=== PATIENT | male | born 1965 | race Asian ===

== ENCOUNTER 2020-11-25 07:38 | Outpatient (CLI) | payer OTHER, SELFPAY ==
[2020-11-25 08:46] LABS: Alanine Aminotransferase 25 U/L (4-50); Albumin Level 4.3 g/dL (3.5-5.1); Alkaline Phosphatase 80 U/L (38-126); Anion Gap 5 mmol/L (8-16); Aspartate Amino Transferase 24 U/L (17-59); Bilirubin,Total 0.8 mg/dL (0.2-1.3); Blood Urea Nitrogen 10 mg/dL (9-20); Calcium 9.3 mg/dL (8.4-10.2); Carbon Dioxide 34 mmol/L (22-30); Chloride 95 mmol/L (98-107); Cholesterol 154 mg/dL (0-200); Estimated Glomerular Filt Rate > 60; Glucose 226 mg/dL (65-110); HDL Direct 39 mg/dL; Potassium 3.5 mmol/L (3.4-5.0); Sodium 134 mmol/L (137-145); Triglycerides 253 mg/dL (<150)
[2020-11-25 08:57] LABS: LDL Cholesterol Direct 55 mg/dL
[2020-11-25 11:09] LABS: Hemoglobin A1C 9.9 % (<5.7)
== END 2020-11-25 07:39 | disposition home or self-care (01) ==
LOC: ANHLAB 07:53
PROVIDERS: PCP Internal Medicine
DX: R06.00 Dyspnea, unspecified (principal); E78.5 Hyperlipidemia, unspecified
CPT/HCPCS: 36415; 80053; 80061; 83036; 84443

== ENCOUNTER 2021-04-28 06:59 | Outpatient (CLI) | payer OTHER, SELFPAY ==
[2021-04-28 07:40] LABS: Alanine Aminotransferase 25 U/L (4-50); Albumin Level 4.1 g/dL (3.5-5.1); Alkaline Phosphatase 66 U/L (38-126); Anion Gap 6 mmol/L (8-16); Aspartate Amino Transferase 26 U/L (17-59); Bilirubin,Total 0.8 mg/dL (0.2-1.3); Blood Urea Nitrogen 15 mg/dL (9-20); Calcium 8.8 mg/dL (8.4-10.2); Carbon Dioxide 34 mmol/L (22-30); Chloride 98 mmol/L (98-107); Cholesterol 131 mg/dL (0-200); Estimated Glomerular Filt Rate > 60; Glucose 117 mg/dL (65-110); HDL Direct 36 mg/dL; Sodium 138 mmol/L (137-145); Triglycerides 151 mg/dL (<150)
[2021-04-28 07:43] LABS: Hemoglobin A1C 8.3 % (<5.7)
[2021-04-28 07:51] LABS: LDL Cholesterol Direct 59 mg/dL
[2021-04-28 08:10] LABS: Prostate Specific Antigen 2.2 ng/mL (< OR = 4.0)
== END 2021-04-28 07:00 | disposition home or self-care (01) ==
LOC: ANHLAB 07:01
PROVIDERS: PCP Internal Medicine; Visit Provider Family Medicine Adolescent Medicine
DX: E11.65 Type 2 diabetes mellitus with hyperglycemia (principal); E78.00 Pure hypercholesterolemia, unspecified; I10 Essential (primary) hypertension
CPT/HCPCS: 36415; 80053; 80061; 83036; 84153; G0103

== ENCOUNTER 2021-05-11 15:27 | Outpatient (RCR) | payer OTHER, SELFPAY ==
[2021-05-11 15:35] VITALS: BMI 30.7
[2021-05-11 15:39] VITALS: BMI 30.7
== END 2021-07-30 11:14 | disposition home or self-care (01) ==
LOC: ANHDMC 15:27
PROVIDERS: PCP Internal Medicine; Visit Provider Family Medicine Adolescent Medicine
DX: E11.65 Type 2 diabetes mellitus with hyperglycemia (principal); Z71.3 Dietary counseling and surveillance
CPT/HCPCS: 97802

== ENCOUNTER 2021-10-09 15:27 | Outpatient (RCR) | payer OTHER, SELFPAY ==
[2021-10-10 14:35] VITALS: BMI 29.8
== END 2021-12-24 09:11 | disposition home or self-care (01) ==
LOC: ANHDMC 15:27
PROVIDERS: PCP Family Medicine Adolescent Medicine; Referring Provider Family Medicine Adolescent Medicine; Visit Provider Family Medicine Adolescent Medicine
DX: E11.65 Type 2 diabetes mellitus with hyperglycemia (principal); Z71.3 Dietary counseling and surveillance
CPT/HCPCS: 97803

== ENCOUNTER 2022-04-25 15:30 | Outpatient (RCR) | payer OTHER, SELFPAY ==
--- NOTE | 2022-03-27 10:09 | PTOPEVAL1 ---
Assessment and note entered by Mayra Vizcaino, PT Evaluation Information Assessment Status Evaluation Diagnosis low back pain Onset 3-4 months ago Subjective Information gradual increase in pain in back; has had PT in the past and it helped--few years ago; usually back gets a little worse in winter when not as active; does not do any exercises for his back; no recent testing, about 3 yr ago had some done; also reports R achilles tendon pain; Reported Pain Level Pain Score Self Report Additional Pain Score Comments pain range in past week of 5-6/10; achey, sore, hurts; radicular into R LE to posterior thigh to knee; increase pain with activity, walk too far; decrease with walking/change position,muscle cream is not taking any meds at this time, not had any over the counter meds in 4 weeks; sometimes awaken from sleep due to back pain, not as much any more; reported walking/standing 30 min Back has improved some in the past 4 weeks; have not used heat/ice--educated PRN use; Assessment PT Clinical Summary Izzy has the diagnosis of low back pain, with radicular pain into R posterior thigh to knee intermittent. His job is sitting and computer work. He reports a history of back pain, without any recent injury or trauma to back. He has had PT in the past and it eased his pain and currently does not do any back exercises. Oswestry self assessment functional score of 52% limitation in activity level-- decreased walking, sitting and activity tolerances. With the evaluation: he has poor standing posture /position and sits with rounded trunk, often crossed his legs; tightness of R and L quads/ant hip & piriformis R, with decreased ROM of hip extension and hamstrings B; weakness of trunk extension and hip extension muscle groups; Skilled PT services are indicated for modalities to decrease pain and spasms, therapeutic exercises to stretch and strengthen trunk and hips, with education to improve posture and body mechanics, and home exercises. Plan of Care Interventions Electrical Stimulation,Hot Pack/Cold Pack,Manual Therapy,Mechanical Traction,Patient/Caregiver Education,Therapeutic Activities,Therapeutic Exercise,Ultrasound,Other
--- NOTE | 2022-04-22 16:25 | PCPTNOTE ---
Patient called & cancelled scheduled appointment this date due to work.
--- NOTE | 2022-04-25 16:10 | PTOPPROG ---
Assessment and note entered by Mayra Vizcaino, PT Evaluation Information Assessment Status Progress Diagnosis low back pain Onset 3-4 months ago Subjective Information back is better, but have overall pain-- all joints hurting; no sure why, want to see dr about it; nothing has changed with meds or anything else; want to see dr and decide if need anymore therapy or what is going on with the pain; pain range of back in the past week:4-6/10, dull pain in back; and when move hip, sometimes R anterior hip; standing/walking tolerance about 60 min then have to sit down; decrease pain with sitting, resting; heat; is not taking any pain meds; have more overall pain in all joints-- cannot do anything at the end of the day, no walking, no lifting; sleeping disrupted due to shoulder pain, arms numb hips sore; Assessment PT Clinical Summary Izzy has received 9 PT sessions for low back pain. Compared to the initial evaluation: pain rating at the low rating is better, from 5 to 4/10 and worst rating same at 6/10; no longer has radicular pain into R leg, but has anterior hip pain at times with stretching; Self assessment Oswestry improved from 52% to 42% limitation in activity; reported standing/walking tolerance increased from 30 to 60 minutes; increased flexibility with standing trunk flexion and supine R hip ER no longer painful, increase L hamstring and B anterior hip/quad flexibility; increase trunk and hip strength; Education has been provided for body mechanics and posture, and HEP. He reports in the past week more overall body and joint pain, want to have the dr check it. HOLD PT until he follows up with the dr. After dr appointment, if agreed, plan to continue PT 2x/wk for continued increase trunk and hip strength and flexibility, with progression of HEP. Plan of Care Interventions Electrical Stimulation,Hot Pack/Cold Pack,Manual Therapy,Mechanical Traction,Neuro Re-education, Patient/Caregiver Education,Therapeutic Activities, Therapeutic Exercise,Ultrasoun
--- NOTE | 2022-06-19 14:14 | PCPTNOTE ---
PHYSICAL THERAPY DISCHARGE 06-19-22 Attending Provider: James Jaimes MD Patient:Izzy Marcum Date of :1965 Mr. Marcum has not returned for any further treatments since the reevaluation on 04/25/2022, therefore he will be discharged at this time. Thank you for referring this patient to [facility].
== END 2022-06-19 14:23 | disposition home or self-care (01) ==
LOC: ANHPT 15:30
PROVIDERS: PCP Family Medicine Adolescent Medicine; Visit Provider Family Medicine Adolescent Medicine
DX: M54.50 Low back pain, unspecified (principal)
CPT/HCPCS: 97014; 97110; 97140; 97161; 97530; G0283

== ENCOUNTER 2022-05-17 07:06 | Outpatient (CLI) | payer OTHER, SELFPAY ==
[2022-05-17 07:28] LABS: Basophils Percent Auto 0.4 % (0.2-1.2); Eosinophils Absolute Auto 0.2 K/mm3 (0-0.3); Eosinophils Percent Auto 2.1 % (0-4.4); Hematocrit 46.4 % (42.0-52.0); Hemoglobin 15.7 g/dL (14.0-18.0); Immature Granulocyte Absolute 0.02 K/mm3 (0.00-0.031); Immature Granulocyte Percent A 0.3 % (0-0.5); Lymphocytes Absolute Auto 1.68 K/mm3 (0.9-3.2); Lymphocytes Percent Auto 23.2 % (18.3-44.2); Mean Corpuscular HGB Conc 33.8 g/dl (32-36); Mean Corpuscular Hemoglobin 26.8 pg (26-34); Mean Corpuscular Volume 79.3 fl (80-100); Mean Platelet Volume 11.6 fl (7.4-10.4); Monocytes Absolute Auto 0.6 K/mm3 (0.1-0.6); Neutrophils Absolute Auto 4.8 K/mm3 (1.3-6.7); Platelet Count Result 205 k/mm3 (150-375); Red Blood Count 5.85 M/mm3 (4.6-6.20); Red Cell Distribution Width 12.1 % (11.5-14.5); White Blood Count 7.2 K/mm3 (4.5-10.0)
[2022-05-17 07:38] LABS: Rheumatoid Factor < 8.6 IU/ML (<12)
[2022-05-17 07:57] LABS: Alanine Aminotransferase 26 U/L (6-50); Albumin Level 4.2 g/dL (3.5-5.1); Alkaline Phosphatase 67 U/L (38-126); Anion Gap 5 mmol/L (8-16); Aspartate Amino Transferase 24 U/L (17-59); Bilirubin,Total 0.8 mg/dL (0.2-1.3); Blood Urea Nitrogen 19 mg/dL (9-20); CRP 0.6 mg/dL (<1.0); Calcium 8.7 mg/dL (8.4-10.2); Carbon Dioxide 34 mmol/L (22-30); Chloride 96 mmol/L (98-107); Cholesterol 128 mg/dL (0-200); Estimated Glomerular Filt Rate > 60; Glucose 155 mg/dL (65-110); HDL Direct 35 mg/dL; Potassium 3.4 mmol/L (3.4-5.0); Sodium 135 mmol/L (137-145); Triglycerides 186 mg/dL (<150)
[2022-05-17 07:59] LABS: Erythrocyte Sedimentation Rate 1 mm/hr (0-20)
[2022-05-17 08:06] LABS: LDL Cholesterol Direct 61 mg/dL
[2022-05-17 08:14] LABS: MALB Creatinine Ratio 8.4 mg/g (0-30); Microalbumin Urine Random 7.7 mg/L (0-16.7)
[2022-05-17 08:23] LABS: Prostate Specific Antigen 2.8 ng/mL (< OR = 4.0)
[2022-05-21 15:48] LABS: C-Peptide 0.59 ng/mL (0.80-3.85)
== END 2022-05-17 07:07 | disposition home or self-care (01) ==
LOC: ANHLAB 07:07
PROVIDERS: Internal Medicine Endocrinology, Diabetes & Metabolism; PCP Family Medicine Adolescent Medicine; Visit Provider Family Medicine Adolescent Medicine
DX: M25.50 Pain in unspecified joint (principal); I10 Essential (primary) hypertension; E11.65 Type 2 diabetes mellitus with hyperglycemia; E78.00 Pure hypercholesterolemia, unspecified; Z71.3 Dietary counseling and surveillance
CPT/HCPCS: 36415; 80053; 80061; 82043; 84153; 84443; 84681; 85025; 85652; 86140; 86430; G0103

== ENCOUNTER 2022-08-26 11:48 | Outpatient (CLI) | payer OTHER, SELFPAY ==
--- NOTE | ~2022-08-26 | XR_ITS ---
XR lumbar spine 2-3V DATE: 08/26/2022 12:12 INDICATION: Recurrent low back pain, radiating upward TECHNIQUE: AP, lateral, coned lateral lumbosacral views COMPARISON: None FINDINGS: Mild lumbar dextroscoliosis. No fracture or bone destruction. The lumbar pedicles are intact. Moderately severe degenerative disc disease at L1-2. The remaining lumbar and lumbosacral interspaces appear well preserved. The sacral iliac joints are intact. IMPRESSION: Mild dextroscoliosis Moderately severe degenerative disc disease at L1-2 Reviewed, dictated and finalized at location [facility].
== END 2022-08-26 11:49 | disposition home or self-care (01) ==
PROVIDERS: PCP Family Medicine Adolescent Medicine; Visit Provider Family Medicine Adolescent Medicine
DX: M54.50 Low back pain, unspecified (principal); M41.9 Scoliosis, unspecified; M51.36 Other intervertebral disc degeneration, lumbar region
CPT/HCPCS: 72100

== ENCOUNTER 2022-09-02 08:23 | Outpatient (CLI) | payer OTHER, SELFPAY ==
--- NOTE | ~2022-09-02 | US_ITS ---
US abdomen complete DATE: 09/02/2022 09:00 INDICATION: Recurrent right upper quadrant abdominal pain TECHNIQUE: Real-time imaging and Doppler analysis of the abdomen COMPARISON: None FINDINGS: The pancreas is largely obscured by bowel gas. No hepatic space-occupying mass lesion is ev ident. Normal hepatopedal portal venous flow direction. No gallstones or gallbladder wall thickening or pericholecystic fluid collection. The common bile barbi t measures approximately 2.8 mm. No renal mass lesion or hydronephrosis of the exception of an approximately 4 cm cyst at the upper po le of the left kidney. Splenic size is within normal limits. Normal caliber of the abdominal aorta. The inferior vena cava appears unremarkable. IMPRESSION: Approximately 4 cm left renal superior pole cyst The pancreas is obscured Reviewed, dictated and finalized at [facility]. Reviewed, dictated and finalized at location B.
== END 2022-09-02 08:24 | disposition home or self-care (01) ==
PROVIDERS: PCP Family Medicine Adolescent Medicine; Visit Provider Family Medicine Adolescent Medicine
DX: R10.11 Right upper quadrant pain (principal); N28.1 Cyst of kidney, acquired
CPT/HCPCS: 76700

== ENCOUNTER 2022-10-02 15:00 | Outpatient (RCR) | payer OTHER, SELFPAY ==
--- NOTE | 2022-08-28 13:43 | PTOPEVAL1 ---
Assessment and note entered by Stanley Pleitez Evaluation Information Assessment Status Evaluation Diagnosis low back pain Onset 02/10/22 Subjective Information Pt. reports that he has experienced low back pain for about 1-2 years, but has gotten worse this year. He describes pain in the area of the right side of the low back. Pt. reports that pain can be increased with long periods of sitting or standing. He reports that pain can wake him at night. 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 he attempts to walk every couple hours. Pt. reports that he has underwent xray. He describes an increase in pain with straightening the right l.e. He reports som the has done therapy in the past, with good relief. He reports that he has been starting exercising again with only mild relief. He enjoys walking and gardening, but is currently avoiding those activities due to pain. he reports that his goal for therpay is to reduce his low back pain. Reported Pain Level Pain Score 4: Self Report Assessment PT Clinical Summary Pt. is a 56 year old male who enters the clinic with low back pain. Pt. presentation on this date is consistent with discogenic low back pain. He currently presents with impaired postural awareness, impaired core strength and proximal l.e . strength, pain and function decline. Continued skilled PT is indicated in order to improve these areas to allow for improved comfort with IADL performance. Plan of Care Interventions Electrical Stimulation,Hot Pack/Cold Pack,Manual Therapy,Mechanical Traction,Neuro Re-education, Patient/Caregiver Educati,Therapeutic Activities, Therapeutic Exercise,Self-Care/Home Management PT Services Indicated Yes Treatment Frequency and 2x/week x 8 visits Duration These treatments will address the objective and functional deficits as defined above. The patient will be advanced safely and appropriately in order for the patient to progress towards his/her prior level of function. Additional exercises will be introduced and as well as a comprehensive home exercise program upon discharge, if needed, ?to ensure carryover of functional gains achieved in the clinic. This treatment plan has been reviewed and agreement upon by the patient.
--- NOTE | 2022-08-28 13:46 | OPREHPOC ---
Outpatient Therapy Plan of Care This is a Multidisciplinary Plan of Care that may contain components documented by all disciplines (PT, OT, and ST.) PT Problem 1 PT Problem #1 Knowledge Deficit PT Goal 1 Goal Pt. will be independent with a HEP addressing trunk mobliity and core strength Target Visit 2 PT Goal 2 Goal Pt. will demonstrate verbal knowledge of proper body mechanics with ADL's and work related duties. PT Problem 2 PT Problem #2 Impaired Strength PT Goal 1 Goal Pt. will increase lower and oblique abdominal strength to 4/5 or greater Target Visit 4 PT Goal 2 Goal Pt. will demonstrate improved postural awareness in standing upon visual assessment. Target Visit 8 PT Problem 3 PT Problem #3 Pain PT Goal 1 Goal Pt. will report being able to stand for duration of 2 hours or greater with pain levels at 3/10 at worst Target Visit 8 PT Problem 4 PT Problem #4 Impaired Functional Mobil PT Goal 1 Goal Pt. will return to gardening activities and long distance walking for exercise with 3/10 pain at worst. Target Visit 8
--- NOTE | 2022-10-02 15:51 | PTOPDC ---
Assessment and note entered by Stanley Pleitez Evaluation Information Assessment Status Discharge Diagnosis low back pain Onset 02/10/22 Subjective Information Pt. reports that he has noticed a slight improvement in his condition since beginning PT. He reports that he still has pain and was hopeful for more relief. He continues to describe pain going across the low back. He states that pain is 3/10 at worst but has returned to all normal gardening and at home activities. Pt. reports he will continue with his HEP. Reported Pain Level Pain Score 4: Self Report Assessment PT Clinical Summary Pt. has met the majority of goals established at the initial evaluation. He is encouraged to continue with his HEP and will be discharged from our care at this time. Plan of Care PT Services Indicated Yes
--- NOTE | 2022-10-02 15:52 | PTOPDC ---
Assessment and note entered by Stanley Pleitez Evaluation Information Assessment Status Discharge Diagnosis low back pain Onset 02/10/22 Subjective Information Pt. reports that he has noticed a slight improvement in his condition since beginning PT. He reports that he still has pain and was hopeful for more relief. He continues to describe pain going across the low back. He states that pain is 3/10 at worst but has returned to all normal gardening and at home activities. Pt. reports he will continue with his HEP. Reported Pain Level Pain Score 3: Self Report Assessment PT Clinical Summary Pt. has met the majority of goals established at the initial evaluation. He is encouraged to continue with his HEP and will be discharged from our care at this time. Plan of Care PT Services Indicated Yes
== END 2022-10-03 15:06 | disposition home or self-care (01) ==
LOC: ANHPT 15:00
PROVIDERS: PCP Family Medicine Adolescent Medicine; Visit Provider Family Medicine Adolescent Medicine
DX: M54.50 Low back pain, unspecified (principal)
CPT/HCPCS: 97014; 97110; 97112; 97140; 97161; 97530; G0283

== ENCOUNTER 2023-08-13 07:05 | Outpatient (CLI) | payer OTHER, SELFPAY ==
[2023-08-13 07:47] LABS: Anion Gap 6 mmol/L (4-12); Blood Urea Nitrogen 17 mg/dL (9-20); Calcium 9.2 mg/dL (8.4-10.2); Carbon Dioxide 32 mmol/L (22-30); Chloride 99 mmol/L (98-107); Estimated Glomerular Filt Rate > 60; Glucose 155 mg/dL (65-110); Potassium 3.4 mmol/L (3.4-5.0); Sodium 137 mmol/L (137-145)
[2023-08-13 07:48] LABS: Alanine Aminotransferase 23 U/L (6-50); Albumin Level 4.3 g/dL (3.5-5.1); Alkaline Phosphatase 66 U/L (38-126); Aspartate Amino Transferase 24 U/L (17-59); Bilirubin,Total 0.9 mg/dL (0.2-1.3); Cholesterol 138 mg/dL (0-200); HDL Direct 45 mg/dL; Triglycerides 209 mg/dL (<150)
[2023-08-13 07:58] LABS: LDL Cholesterol Direct 69 mg/dL
[2023-08-13 09:27] LABS: Vitamin D 25 Hydroxy 32.3 ng/mL
[2023-08-13 09:57] LABS: Creatinine Urine 78.1 mg/dL
[2023-08-13 10:36] LABS: MALB Creatinine Ratio < 7.7 mg/g (0-30); Microalbumin Urine Random < 6.0 mg/L (0-16.7)
== END 2023-08-13 07:06 | disposition home or self-care (01) ==
LOC: ANHLAB 07:06
PROVIDERS: PCP Family Medicine Adolescent Medicine; Visit Provider Internal Medicine Endocrinology, Diabetes & Metabolism
DX: R79.89 Other specified abnormal findings of blood chemistry (principal); E78.00 Pure hypercholesterolemia, unspecified; E11.9 Type 2 diabetes mellitus without complications
CPT/HCPCS: 36415; 80053; 80061; 82043; 82306; 82607; 84443